=== PATIENT | male | born 1965 | race American Indian/Alaskan Native ===

== ENCOUNTER 2018-12-06 07:58 | Outpatient (CLI) | payer OTHER ==
[2018-12-06 08:18] LABS: Hematocrit 49.4 % (35.5-45.6); Hemoglobin 16.9 gm/dl (11.8-15.2); Mean Corpuscular HGB Conc 34 % (32-34); Mean Corpuscular Volume 99 fl (84-94); Platelet Count 256 K/mm3 (140-440); Red Blood Count 4.97 M/mm3 (3.65-5.03); Red Cell Distribution Width 14.3 % (13.2-15.2)
[2018-12-06 08:29] LABS: Partial Thromboplastin Time 29.1 Sec. (24.2-36.6)
[2018-12-06 08:36] LABS: BUN/Creatinine Ratio 13; Blood Urea Nitrogen 12 mg/dL (9-20); Calcium 8.7 mg/dL (8.4-10.2); Hemolysis Index 9
[2018-12-06 09:46] LABS: Basophils % (Manual) 0 % (0.0-1.8); Total Cells Counted 100
[2018-12-06 09:47] LABS: Anisocytosis 1+; Macrocytosis 1+; Platelet Estimate Consistent w Auto
--- NOTE | 2018-12-06 13:46 | Cat Scan Report ---
FINAL REPORT EXAM: CT ANGIO ABD/FEMORAL ABD AORTA HISTORY: ATHEROSCLEROSIS, RVD TECHNIQUE: CTA of the abdomen and pelvis through the lower extremities through the toes was performe d. Reconstructions were included in the coronal and sagittal planes. Coronal and sagittal MIPS were incl uded. PRIORS: None. FINDINGS: Lower thorax: Bibasilar atelectasis is seen. The visualized portions of the heart are normal. Liver: The liver is normal in attenuation. No intrahepatic biliary duct dilation. There is a low-atte nuation lesion in the right hepatic lobe measuring 9 millimeters which is higher in attenuation than a simple cyst. 5 millimeter low-attenuation lesion is seen in the hepatic dome which is too small to characterize. There is a hypoattenuating lesion with apparent nodular peripheral enhancement in the r ight hepatic lobe measuring 2.5 centimeters. Additional tiny low-attenuation right hepatic lesion is too small to characterize. Gallbladder/ biliary system: No cholelithiasis. The common bile duct appears nondilated. Spleen: No splenic lesions are seen. Pancreas: No pancreatic lesions are seen. No pancreatic duct dilation. 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 There is a 4 millimeter left interpolar region calculus. Several tiny low-attenuation lesions are see n within both kidneys which are too small to characterize but likely represent small cysts. No hydron ephrosis is seen on either side. Adrenal glands: No adrenal masses. Vasculature: Estimates of vessel stenosis were made using the ratio of the diameter of the normal brandon iber vessel to the area of stenosis. No evidence of abdominal aortic aneurysm or dissection. There is some calcified and noncalcified atherosclerotic plaque within the distal abdominal aorta. There is o cclusion of the left common iliac artery as well as most of the left external iliac artery and the pr oximal left internal iliac artery. There is reconstitution of flow at the level of the left distal ex ternal iliac artery. There is approximately 50 percent stenosis of the right proximal superficial fem oral artery. This is secondary to noncalcified atherosclerotic plaque. The remaining right lower extr emity arteries are patent without evidence of stenosis or plaque. The remaining left lower extremity arteries are patent without focal stenosis. Lower extremities: No soft tissue abnormality. No knee joint effusion. No significant degenerative ch anges are seen. Lymph nodes: No enlarged lymph nodes are seen in the abdomen or pelvis. Bowel, mesentery, peritoneum: No bowel obstruction. No free fluid or free air. The appendix is normal . No colonic diverticulosis. There is submucosal fat throughout the colon. No active inflammation. Urinary bladder: No filling defects are seen. Pelvis: Normal anatomy is noted. No masses. Abdominal wall: There is a small fat containing umbilical hernia. Bones: Degenerative changes are seen in the lumbar spine. Mild degenerative changes of the hip joints are seen. IMPRESSION: 1. 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 Findings were discussed with Dr. Bui at 10:45 a .m. [facility] on 12/06/2018 who reported he would relay the findings to the referring clinician. 2. 50 percent stenosis of the proximal right superficial femoral artery. 3. Submucosal fat throughout the colon may be related to chronic or prior inflammation or infection. 4. Right hepatic lesion most likely representing an hemangioma. Several other nonspecific low-attenua tion hepatic lesions which are incompletely characterized on this study may also represent hemangioma ta versus simple cysts. Other solid neoplasms are not excluded. Could consider further evaluation wit h dedicated hepatic CT or MRI to better characterize these lesions. 5. 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 6. Several tiny low attenuation renal lesions are too small to characterize but likely represent smal l cysts. 7. Nonobstructing left renal calculus.
== END 2018-12-06 07:59 | disposition home or self-care (01) ==
LOC: CT 07:58
PROVIDERS: ATTEND Radiology Vascular & Interventional Radiology
DX: I70.213 Atherosclerosis of native arteries of extremities with intermittent claudication, bilateral legs (principal); I74.5 Embolism and thrombosis of iliac artery; K42.9 Umbilical hernia without obstruction or gangrene; M47.816 Spondylosis without myelopathy or radiculopathy, lumbar region; N20.0 Calculus of kidney
CPT/HCPCS: 36415; 75635; 80048; 85007; 85025; 85610; 85730; Q9967